=== PATIENT | female | born 1975 | race Caucasian/White ===

== ENCOUNTER 2016-07-08 12:29 | Emergency (ER) | payer OTHER ==
[~2016-07-08] VITALS: Ht 170.2 cm; Wt 60.0 kg
[~2016-07-08 12:29] MED LIST: ADDERALL12.5 MG PO; ADDERALL15 MG PO; ADVIL200 M1 PO; AMBIEN CR12.5 MG PO; ATIVAN0.5 MG PO; BIOTIN2500 MCG PO; CALCIUM 500 MG1 EACH PO; CYANOCOBAL1000 MCG/2 IM; DAZIDOX10 MG PO; DILAUDID4 MG PO; DULCOLAX5 MG PO; FENTANYL1 EAC1 TD; KLOR-CON M1010 MEQ PO; LASIX20 MG PO; LASIX40 MG PO; LEVSIN-SL0.125 MG SL; LORAZEPAM1 MG PO; MEGESTROL ACETA20 MG PO; MIRALAX17 GM PO; MULTIPLE VITAM1 EAC4 PO; NEXIUM40 MG PO; OPANA ER30 MG PO; OXYCONTIN80 MG PO; PERCOCET 10-321 EACH PO; PERCOCET 10/1 TABLET PO; PHENERGAN12.5 M1 PO; PROMETHAZINE12.5 M1 PO; PROTONIX40 MG PO; PROZAC40 MG PO; SLOW RELEASE I142 M1 PO; TIZANIDINE HCL6 MG PO; TOPAMAX50 MG PO; VITAMIN D31000 UNIT PO; WARFARIN SODIUM6 MG PO; ZANAFLEX4 M1 PO; ZANAFLEX6 MG PO; ZOFRAN ODT4 MG PO
[2016-07-08 13:01] LABS: EOSINOPHIL (%) 1.4 % (0-5); EOSINOPHIL COUNT 0.1 K/uL (0-0.3); HEMATOCRIT 36.1 % (36.0-46.0); IMMATURE GRANULOCYTE (%) 0.1 % (0.0-0.7); IMMATURE GRANULOCYTE COUNT 0.1 K/uL; LYMPHOCYTE COUNT 1.9 K/uL (1.0-2.8); MCHC 33.5 G/DL (30.0-36.0); MCV 89.4 FL (83-99); MEAN PLAT.VOLUME 9.2 uM^3 (9.5-12.4); MONOCYTE (%) 7.7 % (3-12); MONOCYTE COUNT 0.6 K/uL (0-0.8); NEUTROPHIL (%) 64.5 % (45-76); NEUTROPHIL COUNT 4.8 K/uL (1.8-6.4); PLATELET COUNT 288 K/uL (156-360); RBC DIS.WIDTH-CV 13.6 % (11.8-14.6); RBC DIS.WIDTH-SD 42.6 % (39-53); RED BLOOD COUNT 4.04 M/uL (3.80-5.20); WHITE BLOOD COUNT 7.4 K/uL (4.1-10.2)
[2016-07-08 13:11] LABS: CHLORIDE 108 mEq/L (99-109); SODIUM 138 mEq/L (136-147)
[2016-07-08 13:12] LABS: GLUCOSE 81 mg/dL (70-99)
[2016-07-08 13:14] LABS: ANION GAP 11 MEQ/L (2-14)
[2016-07-08 13:16] LABS: GFR ESTIMATE (CALCULATED) 58 mL/min/
[2016-07-08 13:17] LABS: UREA NITROGEN (BUN) 16 mg/dL (9-23)
[2016-07-08 16:01] VITALS: BP 144/99
== END 2016-07-08 16:02 | disposition home or self-care (01) ==
LOC: EME → EDBD 12:29 → EME 16:02
PROVIDERS: Emergency Medicine
DX: S01.01XA Laceration without foreign body of scalp, initial encounter (principal); E11.9 Type 2 diabetes mellitus without complications; F17.200 Nicotine dependence, unspecified, uncomplicated; W18.30XA Fall on same level, unspecified, initial encounter; Z23 Encounter for immunization; Z88.6 Allergy status to analgesic agent; Z88.0 Allergy status to penicillin
CPT/HCPCS: 70450; 72125; 80048; 85025; 93005; 99281; 99285; J2405; J3010

== ENCOUNTER 2017-09-26 14:38 | Emergency (ER) | payer OTHER ==
[~2017-09-26] VITALS: Ht 170.2 cm; Wt 70.5 kg
[2017-09-26 17:19] LABS: HEMATOCRIT 34.3 % (36.0-46.0); HEMOGLOBIN 11.2 G/DL (11.9-15.5); MCH 26.4 PG (29.0-34.0); MCHC 32.7 G/DL (30.0-36.0); MCV 80.9 FL (83-99); PLATELET COUNT 339 K/uL (156-360); RBC DIS.WIDTH-CV 13.6 % (11.8-14.6); RBC DIS.WIDTH-SD 40.2 % (39-53); RED BLOOD COUNT 4.24 M/uL (3.80-5.20); WHITE BLOOD COUNT 8.9 K/uL (4.1-10.2)
[2017-09-26 17:31] LABS: CHLORIDE 108 mEq/L (99-109); POTASSIUM 4.2 mEq/L (3.7-5.4); SODIUM 139 mEq/L (136-147)
[2017-09-26 17:33] LABS: GLUCOSE 98 mg/dL (70-99); TOTAL PROTEIN 7.1 g/dL (6.4-8.3)
[2017-09-26 17:35] LABS: TOTAL BILIRUBIN 0.3 mg/dL (0.0-1.0)
[2017-09-26 17:37] LABS: ALKALINE PHOSPHATASE 113 IU/L (3-129); CREATININE 1.2 mg/dL (0.6-1.3); GFR ESTIMATE (CALCULATED) 52 mL/min/
[2017-09-26 17:38] LABS: UREA NITROGEN (BUN) 23 mg/dL (9-23)
[2017-09-26 17:39] LABS: AST (GOT) 13 IU/L (2-34)
[2017-09-26 17:40] LABS: ALT (GPT) 10 IU/L (3-49); LIPASE 84 U/L (1.0-51.0)
[2017-09-26 17:47] LABS: QUANTITATIVE HCG < 4.0 MIU/ML
[2017-09-26 18:43] LABS: APPEARANCE CLEAR ((CLEAR)); BILIRUBIN NEGATIVE; BLOOD NEGATIVE; COLOR YELLOW ((YELLOW)); GLUCOSE (STRIP) NEGATIVE; KETONES NEGATIVE; LEUKOCYTES NEGATIVE; NITRITE NEGATIVE; PROTEIN (STRIP) NEGATIVE; SPECIFIC GRAVITY 1.018 (1.000-1.030); UCUL ADDED? NO; UROBILINOGEN 0.2 MG/DL (0.2-1.0)
[2017-09-26] MEDS ORDERED: BENTYL10 MG PO (20:48)
[2017-09-26] MEDS ORDERED: ZOFRAN4 MG SL (20:48)
[2017-09-26 21:03] VITALS: BP 114/77
== END 2017-09-26 21:03 | disposition home or self-care (01) ==
LOC: EME 14:38
PROVIDERS: Physician Assistant
DX: R10.13 Epigastric pain (principal); R74.8 Abnormal levels of other serum enzymes; M79.7 Fibromyalgia; E11.9 Type 2 diabetes mellitus without complications; G43.909 Migraine, unspecified, not intractable, without status migrainosus; Z90.49 Acquired absence of other specified parts of digestive tract; Z90.710 Acquired absence of both cervix and uterus; Z86.718 Personal history of other venous thrombosis and embolism; Z98.84 Bariatric surgery status; F17.200 Nicotine dependence, unspecified, uncomplicated; Z88.5 Allergy status to narcotic agent; Z88.0 Allergy status to penicillin; Z88.1 Allergy status to other antibiotic agents
CPT/HCPCS: 74177; 80053; 81003; 83690; 84702; 85027; 99281; 99285; C9113; J2405; J2765; J3010; J7030

== ENCOUNTER 2017-12-10 13:25 | Observation (INO) | payer OTHER ==
[~2017-12-10] VITALS: Ht 170.2 cm; Wt 74.0 kg
[~2017-12-10 13:25] MED LIST changes: -ADDERALL15 MG PO; +AMPHETAMINE SAL20 MG PO; -ATIVAN0.5 MG PO; +BENTYL10 MG PO; +CLONAZEPAM0.5 MG PO; +OXYCODONE HCL15 MG PO; -PERCOCET 10/1 TABLET PO; +TIZANIDINE HCL4 MG PO; -TIZANIDINE HCL6 MG PO; +ZOFRAN4 MG SL
[2017-12-10 14:11] LABS: BASOPHIL (%) 0.3 % (0-1); EOSINOPHIL (%) 0.3 % (0-5); HEMATOCRIT 34.3 % (36.0-46.0); IMMATURE GRANULOCYTE (%) 0.3 % (0.0-0.7); LYMPHOCYTE (%) 17.8 % (15-42); LYMPHOCYTE COUNT 1.3 K/uL (1.0-2.8); MCH 25.5 PG (29.0-34.0); MCHC 32.1 G/DL (30.0-36.0); MCV 79.6 FL (83-99); MONOCYTE (%) 6.3 % (3-12); MONOCYTE COUNT 0.5 K/uL (0-0.8); NEUTROPHIL COUNT 5.3 K/uL (1.8-6.4); PLATELET COUNT 292 K/uL (156-360); RBC DIS.WIDTH-CV 15.4 % (11.8-14.6); RBC DIS.WIDTH-SD 44.6 % (39-53); RED BLOOD COUNT 4.31 M/uL (3.80-5.20); WHITE BLOOD COUNT 7.1 K/uL (4.1-10.2)
[2017-12-10 14:20] LABS: ALBUMIN 3.9 g/dL (3.2-4.8)
[2017-12-10 14:21] LABS: CHLORIDE 110 mEq/L (99-109); POTASSIUM 4.6 mEq/L (3.7-5.4); SODIUM 138 mEq/L (136-147)
[2017-12-10 14:23] LABS: GLUCOSE 88 mg/dL (70-99); TOTAL PROTEIN 6.9 g/dL (6.4-8.3)
[2017-12-10 14:25] LABS: TOTAL BILIRUBIN 0.4 mg/dL (0.0-1.0)
[2017-12-10 14:26] LABS: ALKALINE PHOSPHATASE 79 IU/L (3-129)
[2017-12-10 14:27] LABS: CREATININE 1.4 mg/dL (0.6-1.3); GFR ESTIMATE (CALCULATED) 44 mL/min/
[2017-12-10 14:28] LABS: AST (GOT) 14 IU/L (2-34); UREA NITROGEN (BUN) 17 mg/dL (9-23)
[2017-12-10 14:29] LABS: ALT (GPT) 12 IU/L (3-49)
[2017-12-10 14:30] LABS: LIPASE 104 U/L (1.0-51.0)
[2017-12-10] MEDS ORDERED: ZOLPIDEM TARTRAT5 MG PO (17:45)
[2017-12-10] MEDS ORDERED: GABAPENTIN600 MG PO (17:45)
[2017-12-10] MEDS ORDERED: OMEPRAZOLE40 M1 PO (17:45)
[2017-12-10] MEDS ORDERED: TRAZODONE HCL50 MG PO (17:46)
[2017-12-10 20:00] VITALS: BP 130/78
[2017-12-11 01:12] VITALS: BP 109/53
[2017-12-11 05:26] LABS: MCH 25.7 PG (29.0-34.0); MCHC 31.4 G/DL (30.0-36.0); MCV 81.6 FL (83-99); PLATELET COUNT 236 K/uL (156-360); RBC DIS.WIDTH-CV 15.5 % (11.8-14.6); RBC DIS.WIDTH-SD 45.7 % (39-53); WHITE BLOOD COUNT 5.2 K/uL (4.1-10.2)
[2017-12-11 05:28] LABS: HEMOGLOBIN 8.8 G/DL (11.9-15.5); RED BLOOD COUNT 3.43 M/uL (3.80-5.20)
[2017-12-11 05:33] LABS: ALBUMIN 3.1 g/dL (3.2-4.8); CHLORIDE 113 mEq/L (99-109); POTASSIUM 4.3 mEq/L (3.7-5.4); SODIUM 139 mEq/L (136-147)
[2017-12-11 05:35] LABS: GLUCOSE 86 mg/dL (70-99)
[2017-12-11 05:39] LABS: ALKALINE PHOSPHATASE 60 IU/L (3-129); CREATININE 1.2 mg/dL (0.6-1.3); GFR ESTIMATE (CALCULATED) 52 mL/min/
[2017-12-11 05:40] LABS: AST (GOT) 10 IU/L (2-34); UREA NITROGEN (BUN) 13 mg/dL (9-23)
[2017-12-11 05:42] LABS: ALT (GPT) 9 IU/L (3-49); LIPASE 58 U/L (1.0-51.0)
[2017-12-11 05:58] LABS: TOTAL BILIRUBIN 0.2 mg/dL (0.0-1.0); TOTAL PROTEIN 5.4 g/dL (6.4-8.3)
[2017-12-11 06:52] LABS: IRON 35 MCG/DL (35-150); TRANSFERRIN (TIBC) 287.4 mg/dL (215-380); TRANSFERRIN SATUR. 12 % (20-55)
[2017-12-11 07:24] VITALS: BP 93/52
[2017-12-11 08:41] LABS: FERRITIN 5 NG/ML (10-291)
[2017-12-11 11:22] VITALS: BP 102/70
[2017-12-11 15:02] VITALS: BP 117/71
[2017-12-11 15:43] LABS: HEMATOCRIT 28.9 % (36.0-46.0); HEMOGLOBIN 8.8 G/DL (11.9-15.5); MCH 24.9 PG (29.0-34.0); MCHC 30.4 G/DL (30.0-36.0); MCV 81.6 FL (83-99); PLATELET COUNT 226 K/uL (156-360); RBC DIS.WIDTH-CV 15.5 % (11.8-14.6); RBC DIS.WIDTH-SD 46.3 % (39-53); RED BLOOD COUNT 3.54 M/uL (3.80-5.20); WHITE BLOOD COUNT 4.2 K/uL (4.1-10.2)
[2017-12-11] MEDS ORDERED: OMEPRAZOLE40 M1 PO (16:00)
[2017-12-11 19:55] VITALS: BP 108/56
[2017-12-11 22:07] LABS: APPEARANCE CLEAR ((CLEAR)); BILIRUBIN NEGATIVE; BLOOD NEGATIVE; COLOR STRAW ((YELLOW)); GLUCOSE (STRIP) NEGATIVE; KETONES NEGATIVE; LEUKOCYTES NEGATIVE; NITRITE NEGATIVE; PROTEIN (STRIP) NEGATIVE; SPECIFIC GRAVITY 1.006 (1.000-1.030); UCUL ADDED? NO; UROBILINOGEN 0.2 MG/DL (0.2-1.0)
[2017-12-12 00:47] VITALS: BP 114/57
[2017-12-12 03:51] VITALS: BP 116/62
[2017-12-12 05:54] LABS: BASOPHIL (%) 0.5 % (0-1); EOSINOPHIL (%) 1.2 % (0-5); EOSINOPHIL COUNT 0.1 K/uL (0-0.3); HEMATOCRIT 27.9 % (36.0-46.0); HEMOGLOBIN 8.7 G/DL (11.9-15.5); LYMPHOCYTE (%) 45.8 % (15-42); MCH 25.1 PG (29.0-34.0); MCHC 31.2 G/DL (30.0-36.0); MCV 80.4 FL (83-99); MONOCYTE (%) 7.4 % (3-12); MONOCYTE COUNT 0.3 K/uL (0-0.8); NEUTROPHIL (%) 45.1 % (45-76); NEUTROPHIL COUNT 1.9 K/uL (1.8-6.4); PLATELET COUNT 258 K/uL (156-360); RBC DIS.WIDTH-CV 15.5 % (11.8-14.6); RBC DIS.WIDTH-SD 45.2 % (39-53); RED BLOOD COUNT 3.47 M/uL (3.80-5.20); WHITE BLOOD COUNT 4.3 K/uL (4.1-10.2)
[2017-12-12 07:45] VITALS: BP 121/76
[2017-12-12] MEDS ORDERED: FERROUS SULFAT325 MG PO (09:29)
[2017-12-12] MEDS ORDERED: OMEPRAZOLE40 M1 PO (11:06)
[2017-12-12] MEDS ORDERED: CARAFATE1 GM PO (11:06)
== END 2017-12-12 11:12 | disposition home or self-care (01) ==
LOC: EME 13:25 → 4SOUTH 17:23 → EDOF 17:23 → ENRESERV 17:25 → 4SOUTH 20:06
PROVIDERS: Emergency Medicine; Hospitalist; Specialist
DX: R10.10 Upper abdominal pain, unspecified (principal); K25.4 Chronic or unspecified gastric ulcer with hemorrhage; Z98.84 Bariatric surgery status; G89.4 Chronic pain syndrome; R74.8 Abnormal levels of other serum enzymes; K31.7 Polyp of stomach and duodenum; R19.7 Diarrhea, unspecified; D64.9 Anemia, unspecified; M79.7 Fibromyalgia; N80.9 Endometriosis, unspecified; M19.90 Unspecified osteoarthritis, unspecified site; Z90.710 Acquired absence of both cervix and uterus; Z90.49 Acquired absence of other specified parts of digestive tract; F17.290 Nicotine dependence, other tobacco product, uncomplicated; Z88.0 Allergy status to penicillin; Z88.5 Allergy status to narcotic agent; Z91.018 Allergy to other foods; R50.9 Fever, unspecified; Z87.11 Personal history of peptic ulcer disease
CPT/HCPCS: 74177; 80053; 81003; 82607; 82728; 83540; 83690; 84466; 85025; 85027; 87177; 87493; 87506; 88305; 88342 TC; 99281; 99285; C9113; G0378; J1170; J2405; J2765; J3010; J7030; J7050